=== PATIENT | male | born 1980 | race Caucasian/White ===

== ENCOUNTER 2021-01-08 15:57 | Emergency (ER) | payer OTHER ==
[~2021-01-08] VITALS: Ht 180.3 cm; Wt 40.9 kg
[2021-01-08] MEDS ORDERED: LIDOCAINE WITH 8.4% SOD BICARB 3 ML DISP.SYRIN. INJ ONE (16:15)
--- NOTE | 2021-01-08 16:48 | PHYS DOC ---
Past Medical History Past Medical History: No Pertinent History Past Surgical History: Other Additional Past Surgical Histo: ACL REPAIR, RIGHT COMPOUND FX Smoking Status: Never Smoker Alcohol Use: Occasionally General Adult EDM: Chief Complaint: LACERATION/AVULSION HPI: HPI: Patient is a 40 year old male patient who presents to the ED today complaining of chin laceration. 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 [] Musculoskeletal: Denies back pain or joint pain. [] Integument: Reports chin laceration Neurologic: Denies headache, focal weakness or sensory changes. [] Psychiatric: Denies depression or anxiety. [] Heart Score: Risk Factors: Risk Factors: DM, Current or recent (<one month) smoker, HTN, HLP, family history of CAD, obesity. Risk Scores: Score 0 - 3: 2.5% MACE over next 6 weeks - Discharge Home Score 4 - 6: 20.3% MACE over next 6 weeks - Admit for Clinical Observation Score 7 - 10: 72.7% MACE over next 6 weeks - Early Invasive Strategies Current Medications: Current Medications Medications (Trade) Dose Ordered Sig/Juan Daniel Start Time Stop Time Status Last Admin Dose Admin Lidocaine HCl (Buffered Lidocaine 1%) 3 ml 1X ONCE 01/08/21 16:15 01/08/21 16:16 DC 01/08/21 16:21 3 ML Allergies: Allergies: Allergies Coded Allergies Type Severity Reaction Last Updated Verified No Known Drug Allergies 01/08/21 No Physical Exam: PE: Constitutional: Well developed, well nourished, no acute distress, non-toxic appearance. [] Skin: Warm, dry, chin with a laceration approximately 2 cm long not cutting through. Back: No tenderness, no CVA tenderness. [] Extremities: No tenderness, no cyanosis, no clubbing, ROM intact, no edema. [] Neurologic: Alert and oriented X 3, normal motor function, normal sensory function, no focal deficits noted. [] Psychologic: Affect normal, judgement normal, mood normal. [] Current Patient Data: Vital Signs: Vital Signs Date Time Temp Pulse Resp B/P (MAP) Pulse Ox O2 Delivery O2 Flow Rate FiO2 01/08/21 15:58 98.2 85 21 154/89 (110) 98 Room Air 98.2 EKG: EKG: [] Radiology/Procedures: Radiology/Procedures: Laceration/Wound Repair Laceration/Wound Repair : [] Wound Location: Chin Wound's Depth, Shape: V Wound Length (cm): Approximately 2 cm Wound Explored: clean Irrigated w/ Saline (ccs): 10 Betadine Prep?: Yes Anesthesia: 1% of buffered lidocaine Volume Anesthetic (ccs): Approximately 2 cc Wound Repaired With: Absorbable gut Suture Size/Type: 5.0/interrupted sutures Number of Sutures: 5 Progress : Neosporin applied to the laceration site, laceration left open to air Course & Med Decision Making: Course & Med Decision Making Pertinent Labs and Imaging studies reviewed. 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 Tetanus up-to-date, laceration was repaired by me as noted in procedures. Wound care instructions and return precautions provided Steven Disclaimer: Steven Disclaimer: This electronic medical record was generated, in whole or in part, using a voice recognition dictation system. Departure Departure Impression: Primary Impression: Chin laceration Qualified Codes: S01.81XA - Laceration without foreign body of other part of head, initial encounter Disposition: 01 DC HOME SELF CARE/HOMELESS Condition: STABLE Referrals: NO PCP (PCP) Follow-up in 1 week with your doctor as needed Patient Instructions: Facial Laceration Additional Instructions: Thank you for choosing [facility] emergency room. You have a chin laceration that was closed with dissolvable stitches. You can shower and wash the area but do not scrub it or soak it. Please apply Neosporin to the area twice a day. Monitor the area for any worsening condition including increased redness, warmth, yellow drainage or any other concerning symptoms and return to the ED or see your own doctor if they occur. SAMARA ESPOSITO APRN Jan 08, 2021 16:48
[2021-01-08 16:53] VITALS: BP 167/95
[2021-01-08] MEDS ORDERED: BACITRACIN TOPICAL OINT PACKET. TP ONE ×2 (16:53→17:00)
== END 2021-01-08 16:53 | disposition home or self-care (01) ==
LOC: ER 15:57
DX: S01.81XA Laceration without foreign body of other part of head, initial encounter (principal); Z98.890 Other specified postprocedural states; X58.XXXA Exposure to other specified factors, initial encounter; Y93.89 Activity, other specified; Y92.89 Other specified places as the place of occurrence of the external cause; Y99.8 Other external cause status
CPT/HCPCS: 12011; 99283; J3490